=== PATIENT | male | born 2000 | race Caucasian/White ===

== ENCOUNTER 2021-01-02 14:23 | Emergency (ER) | payer BC ==
[~2021-01-02] VITALS: Ht 182.9 cm; Wt 91.0 kg
[2021-01-02] MEDS ORDERED: TETRACAINE 0.5% OPHTH DROPS 4ML BOTHEYE ONE (14:45)
[2021-01-02 15:20] VITALS: BP 109/66
== END 2021-01-02 15:56 | disposition home or self-care (01) ==
LOC: ER 14:32
DX: H57.89 Other specified disorders of eye and adnexa (principal)
CPT/HCPCS: 99283; A4217